=== PATIENT | male | born 1955 | race Caucasian/White ===

== ENCOUNTER 2019-04-13 08:05 | Outpatient (CLI) | payer OTHER, SELFPAY ==
[2019-04-13 10:21] LABS: COMMENT (LAB VIEW ONLY) 164.64 mg/dL; Microalb ug/mg Crea 8.4 ug/mg Cr
[2019-04-13 11:22] LABS: Anion Gap 8.4 mmol/L (3-11); BUN 11 mg/dL (7-18); CO2 28.6 mmol/L (21.0-32.0); CREATININE 0.79 mg/dL (0.70-1.30); Calcium 8.4 mg/dL (8.5-10.1); Calculated LDL 88 mg/dL; Chloride 102 mmol/L (98-107); Cholesterol 144 mg/dL (50-200); Glucose 151 mg/dL (70-100); HDL Cholesterol 41 mg/dL (40-60); Potassium 4.3 mmol/L (3.5-5.1); Sodium 139 mmol/L (136-145); Triglyceride 76 mg/dL (30-150)
== END 2019-04-13 08:25 ==
PROVIDERS: PCP Internal Medicine; Visit Provider Internal Medicine
DX: E11.9 Type 2 diabetes mellitus without complications (principal); E78.5 Hyperlipidemia, unspecified; I10 Essential (primary) hypertension
CPT/HCPCS: 36415; 80048; 80061; 83721; 82043; 82570

== ENCOUNTER 2020-05-29 15:36 | Outpatient (REF) | payer OTHER, SELFPAY ==
[2020-05-29 20:04] LABS: Anion Gap 2.9 mmol/L (3-11); BUN 16 mg/dL (7-18); CO2 33.1 mmol/L (21.0-32.0); CREATININE 0.75 mg/dL (0.70-1.30); Calcium 9.2 mg/dL (8.5-10.1); Calculated LDL 87 mg/dL (<100); Chloride 102 mmol/L (98-107); Cholesterol 176 mg/dL (<200); Glucose 132 mg/dL (74-106); HDL Cholesterol 37 mg/dL (40-60); Potassium 4.3 mmol/L (3.5-5.1); Sodium 138 mmol/L (136-145); Triglyceride 264 mg/dL (<150)
[2020-05-29 21:11] LABS: COMMENT (LAB VIEW ONLY) 108.55 mg/dL; Microalb ug/mg Crea 5.6 ug/mg Cr
== END 2020-05-29 15:56 ==
LOC: LBO 15:36
PROVIDERS: PCP Internal Medicine; Referring Provider Internal Medicine; Visit Provider Internal Medicine
DX: E78.00 Pure hypercholesterolemia, unspecified (principal); I10 Essential (primary) hypertension; E11.9 Type 2 diabetes mellitus without complications
CPT/HCPCS: 80048; 80061; 82043; 82570

== ENCOUNTER 2021-05-22 11:08 | Outpatient (CLI) | payer OTHER, SELFPAY ==
[2021-05-22 13:43] LABS: COMMENT (LAB VIEW ONLY) 112.36 mg/dL
[2021-05-22 14:36] LABS: Anion Gap 8.3 mmol/L (3-11); BUN 11 mg/dL (7-18); CO2 30.7 mmol/L (21.0-32.0); CREATININE 0.8 mg/dL (0.70-1.30); Calcium 8.8 mg/dL (8.5-10.1); Calculated LDL 97 mg/dL (<100); Chloride 101 mmol/L (98-107); Cholesterol 162 mg/dL (<200); Glucose 142 mg/dL (74-106); HDL Cholesterol 46 mg/dL (40-60); Potassium 4.1 mmol/L (3.5-5.1); Sodium 140 mmol/L (136-145); Triglyceride 98 mg/dL (<150)
== END 2021-05-22 11:09 | disposition home or self-care (01) ==
LOC: LBO 11:11
PROVIDERS: PCP Internal Medicine; Visit Provider Internal Medicine
DX: I10 Essential (primary) hypertension (principal); E11.9 Type 2 diabetes mellitus without complications; E78.00 Pure hypercholesterolemia, unspecified
CPT/HCPCS: 36415; 80048; 80061; 82043; 82570

== ENCOUNTER 2023-03-18 03:50 | Outpatient (CLI) | payer OTHER, SELFPAY ==
[2023-03-18 08:14] LABS: COMMENT (LAB VIEW ONLY) 112.92 mg/dL; Microalb ug/mg Crea 5.5 ug/mg Cr
[2023-03-18 08:19] LABS: Calculated LDL 84 mg/dL (<100); Cholesterol 148 mg/dL (<200); HDL Cholesterol 53 mg/dL (40-60); Triglyceride 57 mg/dL (<150)
[2023-03-18 10:11] LABS: Hemoglobin A1C 8.5 % (<5.7)
== END 2023-03-18 03:51 | disposition home or self-care (01) ==
LOC: LBO 03:50
PROVIDERS: Internal Medicine; PCP Nurse Practitioner Adult Health; Referring Provider Nurse Practitioner Adult Health; Visit Provider Nurse Practitioner Adult Health
DX: E11.9 Type 2 diabetes mellitus without complications (principal); E78.5 Hyperlipidemia, unspecified; I48.11 Longstanding persistent atrial fibrillation
CPT/HCPCS: 36415; 80061; 82043; 82570; 83036

== ENCOUNTER 2023-09-16 03:50 | Outpatient (CLI) | payer OTHER, SELFPAY ==
[2023-09-16 08:23] LABS: Hemoglobin A1C 8.5 % (<5.7)
[2023-09-16 08:50] LABS: Anion Gap 5.1 mmol/L (3-11); BUN 10 mg/dL (7-18); CO2 30.9 mmol/L (21.0-32.0); CREATININE 0.8 mg/dL (0.70-1.30); Calcium 8.6 mg/dL (8.5-10.1); Calculated LDL 138 mg/dL (<100); Chloride 102 mmol/L (98-107); Cholesterol 213 mg/dL (<200); Glucose 247 mg/dL (74-106); HDL Cholesterol 58 mg/dL (40-60); Potassium 4.4 mmol/L (3.5-5.1); Sodium 138 mmol/L (136-145); Triglyceride 88 mg/dL (<150)
== END 2023-09-16 03:51 | disposition home or self-care (01) ==
LOC: LBO 03:50
PROVIDERS: PCP Nurse Practitioner Adult Health; Referring Provider Nurse Practitioner Adult Health; Visit Provider Nurse Practitioner Adult Health
DX: E11.9 Type 2 diabetes mellitus without complications (principal)
CPT/HCPCS: 36415; 80048; 80061; 83036

== ENCOUNTER 2023-12-16 05:49 | Outpatient (CLI) | payer OTHER, SELFPAY ==
[2023-12-16 08:06] LABS: Hemoglobin A1C 8.3 % (<5.7)
[2023-12-16 08:16] LABS: BUN 18 mg/dL (7-18); CREATININE 0.7 mg/dL (0.70-1.30); Calcium 8.5 mg/dL (8.5-10.1); Chloride 102 mmol/L (98-107); Estimated GFR 99.74 (mL/min/1.73m2); Glucose 240 mg/dL (74-106); Potassium 4.2 mmol/L (3.5-5.1); Sodium 139 mmol/L (136-145)
[2023-12-16 19:55] LABS: COMMENT (LAB VIEW ONLY) 70.48 mg/dL; Microalb ug/mg Crea 12.8 ug/mg Cr
[2023-12-16 19:59] LABS: Calculated LDL 58 mg/dL (<100); Cholesterol 140 mg/dL (<200); HDL Cholesterol 60 mg/dL (40-60); Triglyceride 114 mg/dL (<150)
== END 2023-12-16 05:50 | disposition home or self-care (01) ==
LOC: LBO 05:49
PROVIDERS: PCP Nurse Practitioner Adult Health; Referring Provider Nurse Practitioner Adult Health; Visit Provider Nurse Practitioner Adult Health
DX: E78.5 Hyperlipidemia, unspecified (principal); E11.9 Type 2 diabetes mellitus without complications; I25.10 Atherosclerotic heart disease of native coronary artery without angina pectoris
CPT/HCPCS: 36415; 80048; 80061; 82043; 82570; 83036

== ENCOUNTER 2024-03-27 10:37 | Outpatient (REF) | payer OTHER, SELFPAY ==
[2024-03-28 18:47] LABS: Hemoglobin A1C 9.7 % (<5.7)
== END 2024-03-27 10:38 | disposition home or self-care (01) ==
LOC: LBN 10:37
PROVIDERS: PCP Nurse Practitioner Adult Health; Visit Provider Nurse Practitioner Adult Health
DX: E11.9 Type 2 diabetes mellitus without complications (principal)
CPT/HCPCS: 83036

== ENCOUNTER 2024-11-13 02:40 | Outpatient (CLI) | payer MEDICARE, SELFPAY ==
[2024-11-13 07:57] LABS: Hemoglobin A1C 11.3 % (<5.7)
[2024-11-13 07:59] LABS: COMMENT (LAB VIEW ONLY) 35.64 mg/dL
[2024-11-13 08:00] LABS: Anion Gap 9.7 mmol/L (3-11); BUN 20 mg/dL (7-18); CO2 28.3 mmol/L (21.0-32.0); Calcium 9.2 mg/dL (8.5-10.1); Calculated LDL 94 mg/dL (<100); Chloride 101 mmol/L (98-107); Cholesterol 181 mg/dL (<200); Estimated GFR 80.97 (mL/min/1.73m2); Glucose 285 mg/dL (74-106); HDL Cholesterol 57 mg/dL (>or=40); Sodium 139 mmol/L (136-145); Triglyceride 153 mg/dL (<150)
== END 2024-11-13 02:41 | disposition home or self-care (01) ==
LOC: LBO 02:40
PROVIDERS: PCP Nurse Practitioner Adult Health; Referring Provider Nurse Practitioner Adult Health; Visit Provider Nurse Practitioner Adult Health
DX: E78.5 Hyperlipidemia, unspecified (principal); E11.9 Type 2 diabetes mellitus without complications; I25.10 Atherosclerotic heart disease of native coronary artery without angina pectoris
CPT/HCPCS: 36415; 80048; 80061; 82043; 82570; 83036

== ENCOUNTER 2025-02-21 16:26 | Outpatient (CLI) | payer MEDICARE, SELFPAY ==
--- NOTE | 2025-02-21 14:50 | DI.RAD_ITS ---
Exam(s) XR HEEL RT OS CALCIS EXAM: XR HEEL RT OS CALCIS CLINICAL HISTORY: R lateral calcaneal vs. calc-talus pain,fell, intractable pain,[id number]. TECHNIQUE: 2D digital imaging was performed. Two views. COMPARISON: No exams were available for comparison FINDINGS: BONES: There is a small fracture fragment from the medial aspect of the calcaneal tuberosity. No additional fractures are identified. No bony destructive lesion is seen. Moderate-sized plantar calcaneal spur. Small enthesophyte at the Achilles insertion. JOINTS: No dislocation present. SOFT TISSUE: Normal vascular calcifications. IMPRESSION: Unremarkable fracture fragment seen at the medial aspect of the calcaneal tuberosity. DATA REPOSITORY: RADIATION DOSE DELIVERED:
== END 2025-02-21 16:46 ==
LOC: DI 16:27
PROVIDERS: PCP Nurse Practitioner Adult Health; Visit Provider Nurse Practitioner Adult Health
DX: M79.671 Pain in right foot (principal); W19.XXXA Unspecified fall, initial encounter
CPT/HCPCS: 73650

== ENCOUNTER 2025-05-04 09:48 | Outpatient (CLI) | payer MEDICARE, SELFPAY ==
--- NOTE | 2025-05-04 09:30 | DI.RAD_ITS ---
Exam(s) XR KNEE RT 3V AP,LAT,SP EXAM: XR KNEE RT 3V AP,LAT,SP CLINICAL HISTORY: r/o popliteal cyst; assess arthritis, rt calf pain, M79.661, M25.561. TECHNIQUE: 2D digital imaging was performed. COMPARISON: No exams were available for comparison FINDINGS: 3 views No evidence of acute fracture nor obvious joint effusion. There are minimal if any significant degenerative changes. Bone density normal. No osseous lesions. There is calcification the popliteal artery and runoff vessels of the calf noted indicating atherosclerotic involvement. IMPRESSION: No significant osseous findings in the right knee. Vascular calcification noted as described above. DATA REPOSITORY: RADIATION DOSE DELIVERED:
== END 2025-05-04 10:08 ==
LOC: DI 09:49
PROVIDERS: PCP Nurse Practitioner Adult Health; Visit Provider Nurse Practitioner Adult Health
DX: M79.661 Pain in right lower leg (principal); M25.561 Pain in right knee
CPT/HCPCS: 73562

== ENCOUNTER 2025-05-15 01:01 | Outpatient (CLI) | payer MEDICARE, SELFPAY ==
--- NOTE | 2025-05-15 13:00 | DI.US_ITS ---
Exam(s) US SOFT TISSUE EXTREMITY EXAM: US SOFT TISSUE EXTREMITY CLINICAL HISTORY: ? R popliteal cyst,RT CALF PAIN, POST RT KNEE PAIN,M79.661. TECHNIQUE: Ultrasound was performed using standard protocol. COMPARISON: CR XR KNEE RT 3V AP,LAT,SP from 05/04/2025 FINDINGS: Sonographic assessment utilizing grayscale and color Doppler imaging was performed and targeted to the area of clinical concern. No evidence of Abreu's cyst or other fluid collection. No significant subcutaneous edema. No solid mass. IMPRESSION: No abnormalities identified in the popliteal fossa. DATA REPOSITORY:
== END 2025-05-15 01:21 ==
LOC: DI 01:01
PROVIDERS: PCP Nurse Practitioner Adult Health; Visit Provider Nurse Practitioner Adult Health
DX: M79.661 Pain in right lower leg (principal); M25.561 Pain in right knee
CPT/HCPCS: 76881